=== PATIENT | female | born 1950 | race Caucasian/White ===

== ENCOUNTER 2018-11-02 15:19 | Outpatient (CLI) | payer MEDICARE, OTHER | END 2018-11-02 15:20 | disposition home or self-care (01) | LOC: SC 15:19 | PROVIDERS: ATTEND Internal Medicine Pulmonary Disease | DX: G47.33 Obstructive sleep apnea (adult) (pediatric) (principal); E66.9 Obesity, unspecified; Z68.34 Body mass index [BMI] 34.0-34.9, adult | CPT/HCPCS: 99203; G0463; 99212 ==

== ENCOUNTER 2018-11-10 19:30 | Outpatient (CLI) | payer MEDICARE, OTHER | END 2018-11-10 23:59 | disposition home or self-care (01) | LOC: SC 19:30 | PROVIDERS: ATTEND Internal Medicine Pulmonary Disease | DX: G47.33 Obstructive sleep apnea (adult) (pediatric) (principal) | CPT/HCPCS: G0399 ×2; 95806 ==

== ENCOUNTER 2018-11-25 15:37 | Outpatient (CLI) | payer MEDICARE, OTHER | END 2018-11-25 15:38 | disposition home or self-care (01) | LOC: SC 15:37 | PROVIDERS: ATTEND Nurse Practitioner Family | DX: G47.33 Obstructive sleep apnea (adult) (pediatric) (principal) | CPT/HCPCS: 99214; G0463; 99212 ==

== ENCOUNTER 2019-02-02 10:17 | Outpatient (CLI) | payer OTHER, MEDICARE | END 2019-02-02 10:18 | disposition home or self-care (01) | LOC: DI 10:17 | PROVIDERS: ATTEND Family Medicine | DX: R01.1 Cardiac murmur, unspecified (principal); I49.9 Cardiac arrhythmia, unspecified | CPT/HCPCS: 93306 ==

== ENCOUNTER 2019-03-09 15:42 | Outpatient (CLI) | payer OTHER, MEDICARE | END 2019-03-09 15:43 | disposition home or self-care (01) | LOC: SC 15:42 | PROVIDERS: ATTEND Nurse Practitioner Family | DX: G47.33 Obstructive sleep apnea (adult) (pediatric) (principal) | CPT/HCPCS: 99212; 99214 ==

== ENCOUNTER 2019-05-11 13:42 | Outpatient (CLI) | payer OTHER, MEDICARE ==
--- NOTE | 2019-05-25 16:27 | Mammography Report ---
Reason: SCREENING MAMMO Procedure Date: 05/11/2019 Accession Number: [id number] / [id number] Procedure: [facility] - Screening Mammo w/Simon CPT Code: FULL RESULT: EXAM: Screening Mammo w/Simon DATE: 05/11/2019 2:19 PM CLINICAL HISTORY: Routine screening. No reported personal history of breast cancer. Family history of breast cancer paternal grandmother age 72. TECHNIQUE: (B) - Bilateral CC and MLO views were obtained. COMPARISON: None PARENCHYMAL PATTERN: (A) - The breasts demonstrate scattered fibroglandular densities bilaterally. FINDINGS: Bilateral breasts: There are no suspicious masses, calcifications, or areas of distortion. IMPRESSION: Negative examination. BI-RADS category 1. RECOMMENDATION: (ANNUAL) - Recommend routine annual screening mammography. BI-RADS CATEGORY: (1) - Negative. STANDARD QUALIFYING STATEMENTS: 1. This examination was not reviewed with the aid of Computer-Aided Detection (CAD). 2. A negative or benign imaging report should not preclude biopsy if clinically suspicious findings are present. 3. Dense breasts may obscure an underlying neoplasm. 4. This examination was reviewed with the aid of 3D breast imaging (tomosynthesis).
== END 2019-05-11 13:43 | disposition home or self-care (01) ==
LOC: DI 13:42
DX: Z12.31 Encounter for screening mammogram for malignant neoplasm of breast (principal); Z80.3 Family history of malignant neoplasm of breast
CPT/HCPCS: 77063; 77067

== ENCOUNTER 2019-06-07 10:10 | Outpatient (CLI) | payer MEDICARE, OTHER ==
[2019-06-07 11:05] VITALS: BP 126/60
--- NOTE | 2019-06-07 11:05 | SLEEP CARE CONSULTATION ---
Information from patient questionnaire entered by Melyssa Morgan. I have reviewed and concur with the information entered by Melyssa Morgan. This document represents the service I personally performed and the decisions made by me, Calista Pemberton, RN, MSN, [employer]. History of Present Illness Previous diagnosis: Mild, Obstructive Sleep Apnea-Hypopnea Syndrome AHI: 7.8 Reason for CPAP/BiPAP follow up: three month Equipment type: CPAP Equipment obtained from: [employer] Mask style: Nasal Mask brand: [employer] CPAP Compliance Data - Data Reviewed with Patient Average duration of nightly device use: 6.2 Compliance rate %: 93 (90 days) Current pressure setting (cmH2O): 4-12 Humidity settin Average residual AHI: 0.3 Subjective Missed days of use due to: reports: other (seeing the difference with and without CPAP. ) Patient concerns: reports: dry mouth, nose, throat (since starting nasal mask - and wakes her 1-2 times a night ). denies: aerophagia, mask discomfort, air blowing in eyes, mask leak noise, condensation in mask/hose, nasal congestion, epistaxis Observed to snore while using device: No (single and sleeps alone) Current pressure setting perceived as: comfortable On therapy, patient: reports: sleeping better, being more awake and alert during the day, more rested overall. denies: awakening more refreshed (new schedule of waking in the middle of night, she is not refreshed. ), drowsiness while driving Initial Nicholls Sleepiness Scale score: 3 Current Nicholls Sleepiness Scale score: 1 Allergies and Home Medications Known drug allergies: Yes Allergy and home medication list: Medication Name (generic/name brand) Strength & Dosage Multiple vitamins Tab one daily Vitamin D Cap one daily Vitamin C Tab one daily Cod Liver Oil Cap one daily MCT oil Tbsp. daily Turmeric oil Tbsp daily Allergy List Beta Blockers Lisinopril Physical Exam Blood Pressure: 126/60 Cuff size: long Heart Rate: 59 O2 Saturation: 98 Height: 5 ft 4.25 in Weight: 199 lb 12.8 oz Body Mass Index: 34.0 BMI Classification: Obesity Class 1 Impression and Plan 1. Obstructive Sleep Apnea-Hypopnea Syndrome, mild, with good treatment compliance and good apnea control. On CPAP therapy, the patient has better sleep quality and is more rested overall. To improve refreshment from sleep, she is advised to get up when she wakes up and to try as much as possible to maintain a regular sleep schedule. ( Her sleep schedule is dependent upon her driving schedule.) For oral dryness since nasal mask, she can try the chinstrap again to see if works. The mask leaks have increased since use of nasal mask. The h umidity was increased to maximum. Thus I reviewed how the heat of hose can contribute to dryness and to reduce setting, increasing only if condensation. The pressure range was not changed as ordered but changed to [id number]. Since her smaller interface, her 95th percentile has lowered from 12 to 11.2cmH20. She would like to eventually come off of CPAP thus I explained how losing significant weight can reduce apnea and CPAP pressure requirements. When she gets to her goal weight and if using lowest pressure, I can order a sleep study for evaluation. We looked at BMI chart and to be at normal weight would take 60 pounds. She has been at that weight when was competing athletically. Currently weight is at Class 2 obesity which increases her apnea risk and overall health risks. Thus I will keep her on the autoCPAP range to accommodate weight loss. Symptoms to report for further adjustment discussed. Patient's apnea severity and rationale for treatment to reduce apnea, improve sleep quality and reduce cardiovascular and cerebrovascular events was reviewed. I also reviewed the benefit of consistent device use of CPAP for her history of hypertension, cerebrovascular disease. Thus with this medical history, she is also advised not to take breaks from CPAP and use with all sleep. Since her apnea is more severe supine, I reviewed again to avoid supine sleep if unable to use CPAP such as illness or no electricity. * Continue CPAP pressure at 4-12 cmH2O * adjust heated hose. * Try the chin strap. * Notify me if snoring with mask or feeling that the pressure is too much or too little * Attempt to lose weight * Return for follow up in 6 months , or sooner if concerns arise I spent 100% of this 35 minute visit face to face with the patient with greater than 50% of this was spent time counseling the patient and coordination of care.
== END 2019-06-07 10:11 | disposition home or self-care (01) ==
LOC: SC 10:10
PROVIDERS: ATTEND Nurse Practitioner Family
DX: G47.33 Obstructive sleep apnea (adult) (pediatric) (principal)
CPT/HCPCS: 99212; 99214